=== PATIENT | male | born 1965 | race Caucasian/White ===

== ENCOUNTER → 2018-01-04 | Day surgery (SDC) | payer BC ==
[2018-01-01 10:07] LABS: BASOPHILS # (AUTO) 0.2 (0.0-0.1); BASOPHILS % 1.8 % (0.0-1.0); EOSINOPHILS # (AUTO) 0.3 (0.0-0.4); EOSINOPHILS % 3.3 % (0.0-6.0); HEMATOCRIT 47.8 % (38.2-49.6); HEMOGLOBIN 16.4 g/dL (14.0-18.0); LYMPHOCYTES # (AUTO) 3.2 (1.0-3.2); LYMPHOCYTES % 35.2 % (18.0-39.1); MEAN CORPUSCULAR HEMOGLOBIN 30.1 pg (28-32); MEAN CORPUSCULAR HGB CONC 34.3 g/dL (31-35); MEAN CORPUSCULAR VOLUME 87.9 fL (81-99); MONOCYTES # (AUTO) 1.2 (0.2-0.8); MONOCYTES % 12.9 % (4.4-11.3); NEUTROPHILS # (AUTO) 4.2 (2.1-6.9); NEUTROPHILS % 46.4 % (38.7-80.0); PLATELET COUNT 523 x10e3/uL (140-360); RED BLOOD COUNT 5.44 x10e6/uL (4.3-5.7); RED CELL DISTRIBUTION WIDTH 13.1 % (11.7-14.4)
[2018-01-01 10:27] LABS: ANION GAP 11.6 mmol/L (8-16); BLOOD UREA NITROGEN 13 mg/dL (7-26); BUN/CREATININE RATIO 13 (6-25); CARBON DIOXIDE 25 mmol/L (22-29); CHLORIDE 106 mmol/L (98-107); EST GLOMERULAR FILTRATION RATE > 60 ML/MIN (60-); GLUCOSE 99 mg/dL (74-118); POTASSIUM 4.6 mmol/L (3.5-5.1); SODIUM 138 mmol/L (136-145)
[~2018-01-04] MED LIST: AMLODIPINE BESYL5 MG PO; BUPIVACAINE 0.25% 30ML SDV INJ ONE; DEXAMETHASONE SOD PHOS INJ 4 MG/ML VIAL ONE; FENTANYL CITRATE/PF 100MCG/2 ML INJ ONE; KETOROLAC TROMETHAMINE 30 MG/ML VIAL ONE; LIDOCAINE HCL 1% LOCAL INJ 20 ML VIAL ONE; LIDOCAINE HCL 2% LOCAL INJ 5 ML SDV VIAL INJ ONE; MIDAZOLAM HCL 2 MG/2 ML VIAL ONE; NAPROXEN250 MG PO; ONDANSETRON HCL INJ 2 MG/ML VIAL ONE; PROPOFOL IV EMULSION 10 MG/ML 20 ML VIAL ONE; SEVOFLURANE INHAL SOLN 250 ML PEN BTL ONE; Z.0.LOSARTAN POTASS5 PO
--- OUTSIDE RECORDS SUMMARY | 2018-01-04 08:03 | XMS REPORT ---
Author Author [facility] Address Unknown Phone Unavailable Care Team Providers Care Emanations Analysis Technician Name Role Phone CRISTIAN HOUSTON Unavailable Unavailable Problems This patient has no known problems. Allergies, Adverse Reactions, Alerts This patient has no known allergies or adverse reactions. Medications This patient has no known medications. Results Test Description Test Time Test Comments Text Results Atomic Results Result Comments MRI SPINE LUMBAR WO [place] [address] Patient Name: ROMARIO ANDINO MR #: [id number] : 1965 Age/Sex: 52/M Req # : [id number] Adm Physician: Ordered by: CRISTIAN HOUSTON MD Report #: [id number] Location: MRI Room/Bed: Procedure: [id number] MRI/MRI SPINE LUMBAR WO Exam Date: 09/18/17 Exam Time: 1000 REPORT STATUS: Signed Exam: Lumbar spine MRI without IV contrast History: Back and left leg pain. Comparison studies: None Technique: Sagittal and axial T2 , sagittal T1 and IR, axial spin density oblique. Intravenous contrast: None Findings: Number of lumbar vertebral bodies: 5. Alignment: Normal lordosis. No scoliosis. Soft tissues: No T2 hyperintense inflammatory changes. Paraspinal muscles: No signal abnormalities. Well-preserved. No atrophic changes Lower thoracic cord: Normal in signal and morphology. The tip of the conus is at T12 -L1. Cauda equina: No masses. No arachnoiditis. Vertebrae: Incidental T1 hyperintense L2 vertebral body hemangioma. No compression fractures, infection or other neoplasm. Degenerative changes: L1-L2: Disc bulge asymmetric to the left with small foraminal disc protrusion and annular fissure result in mild left foraminal stenosis. Disc protrusion abuts the left L1 nerve root. Patent canal and right foramen. L2-L3: Disc bulge asymmetric to the left results in mild left foraminal stenosis. Patent canal and right foramen. L3-L4: Disc bulge asymmetric to the left with 16 mm TV x 3 mm AP left foraminal disc protrusion results in moderate left foraminal stenosis and exerts mass effect on the left L3 nerve root. Patent canal and right foramen. L4-L5: Disc bulge slightly asymmetric to the right with right with annular fissure result in mild right foraminal stenosis. A symmetric disc bulge abuts the right L4 nerve root in the anterior right extra foraminal zone. Patent canal and left foramen. L5-S1 : Mild loss of disc height. Disc bulge with a 8mm TV x 4 mm AP right subarticular disc protrusion compresses the right S1 nerve root. IMPRESSION: 1. Moderate left L3-L4 foraminal stenosis due to a disc protrusion which exerts mass effect on the left L3 nerve root. 2. Asymmetric left disc bulge with annular fissure at L1-L2 result in mild left foraminal stenosis. Disc protrusion abuts the left L1 nerve root. 3. Mild right L4-L5 foraminal stenosis due to a disc bulge with annular fissure which abuts the right L4 nerve root. 4. Right L5-S1 subarticular disc protrusion exerts mass effect on the right S1 nerve root. 5. No significant lumbar canal stenosis. Signed by: Dr. Cristian Mcelroy M.D. on 09/18/2017 5:38 PM Dictated By: CRISTIAN MCELROY MD 37 Transcribed By: DIOGO on 09/18/171737 COPY TO: CRISTIAN HOUSTON MD
--- NOTE | 2018-01-04 16:11 | Operative Report ---
DATE OF PROCEDURE: January 04, 2018 PREOPERATIVE DIAGNOSIS: Left inguinal hernia. POSTOPERATIVE DIAGNOSIS: Left inguinal hernia. OPERATION PERFORMED: Repair of left inguinal hernia with extended Prolene hernia system. ANESTHESIA: General. COMPLICATIONS: None. ESTIMATED BLOOD LOSS: Minimal. DESCRIPTION OF PROCEDURE: With the patient lying in bed in supine position under good general anesthesia. the abdomen was prepped with Betadine solution and draped in the usual manner. A left inguinal incision was made which was carried down through the subcutaneous tissue down to the external oblique aponeurosis. External oblique was opened along the length of its fibers and external inguinal ring was opened. The cord was then mobilized and retracted. Contained within the cord was an indirect hernia sac which was from the cord structures and a high ligation was achieved with a suture ligature of 2-0 silk and a 2-0 silk tie and the excess was resected. Examination of the direct space also revealed the presence of a direct inguinal hernia. The preperitoneal space was then entered right through the internal ring and a pocket was created without any difficulty. An extended Prolene hernia system was placed in the preperitoneal space and the underlay patch was deployed without any problems. The overlay patch was then placed over the floor and split inferolaterally to allow for passage of the cord. The mesh was then sutured to the conjoined tendon and inguinal ligament using interrupted sutures of 2-0 Vicryl. All the areas were infiltrated on the way out with solution of 0.25% percent Marcaine and 1% lidocaine mixed in equal parts. The external oblique aponeurosis was closed with a running suture of 2-0 Vicryl. The subcutaneous tissue was approximated with 3-0 plain and the skin was closed with clips. A dressing was applied. The sponge, lap, and needle count was correct. The patient tolerated the procedure well and returned to the recovery room in stable condition. Job#: [id number] SAK
== END | disposition home or self-care (01) ==
LOC: OR 08:01
PROVIDERS: ATTEND Surgery
DX: K40.90 Unilateral inguinal hernia, without obstruction or gangrene, not specified as recurrent (principal); I10 Essential (primary) hypertension; Z01.810 Encounter for preprocedural cardiovascular examination; Z01.812 Encounter for preprocedural laboratory examination
CPT/HCPCS: 36415; 49505; 80048; 85025; 93005; C1781; J1100; J1885; J2001 ×2; J2250; J2405

== ENCOUNTER 2018-01-24 10:15 | Observation (INO) | payer BC ==
[2018-01-22 15:40] LABS: BASOPHILS # (AUTO) 0.2 (0.0-0.1); BASOPHILS % 1.6 % (0.0-1.0); EOSINOPHILS # (AUTO) 0.4 (0.0-0.4); EOSINOPHILS % 2.6 % (0.0-6.0); HEMATOCRIT 50.7 % (38.2-49.6); HEMOGLOBIN 17.4 g/dL (14.0-18.0); LYMPHOCYTES # (AUTO) 4.2 (1.0-3.2); LYMPHOCYTES % 31.7 % (18.0-39.1); MEAN CORPUSCULAR HEMOGLOBIN 29.8 pg (28-32); MEAN CORPUSCULAR HGB CONC 34.3 g/dL (31-35); MEAN CORPUSCULAR VOLUME 86.8 fL (81-99); MONOCYTES # (AUTO) 1.3 (0.2-0.8); MONOCYTES % 9.7 % (4.4-11.3); NEUTROPHILS # (AUTO) 7.2 (2.1-6.9); PLATELET COUNT 531 x10e3/uL (140-360); RED BLOOD COUNT 5.84 x10e6/uL (4.3-5.7); RED CELL DISTRIBUTION WIDTH 12.9 % (11.7-14.4)
[2018-01-22 15:53] LABS: INR 1.07; PARTIAL THROMBOPLASTIN TIME 27.8 seconds (23.8-35.5); PROTHROMBIN TIME 13.1 seconds (11.9-14.5)
[2018-01-22 15:58] LABS: BLOOD UREA NITROGEN 12 mg/dL (7-26); BUN/CREATININE RATIO 13 (6-25); CALCIUM 9.2 mg/dL (8.4-10.2); CARBON DIOXIDE 21 mmol/L (22-29); CHLORIDE 106 mmol/L (98-107); CREATININE, SERUM 0.94 mg/dL (0.72-1.25); EST GLOMERULAR FILTRATION RATE > 60 ML/MIN (60-); GLUCOSE 93 mg/dL (74-118); SODIUM 138 mmol/L (136-145)
--- NOTE | 2018-01-22 17:16 | Diagnostic Imaging Report ---
PROCEDURE: Frontal and lateral views of the chest. COMPARISON: Patients [facility], , CHEST SINGLE (PORTABLE), 06/19/2012, 11:15. INDICATIONS: PRE-OPERATIVE CHEST X-RAY FOR LUMBAR SPINE SURGERY FINDINGS: Lines/tubes: None. Lungs: The lungs are well inflated and clear. There is no evidence of pneumonia or pulmonary edema. Pleura: There is no pleural effusion or pneumothorax. Heart and mediastinum: The heart and the mediastinum are normal. Bones: No acute bony abnormality. IMPRESSION: 1. No acute cardiopulmonary abnormalities. Merrill Hughes M.D. Dictated by: Merrill Hughes M.D. on 01/22/2018 at 17:15 Electronically approved by: Merrill Hughes M.D. on 01/22/2018 at 17:15
[~2018-01-24] VITALS: Ht 185.4 cm; Wt 93.0 kg
[~2018-01-24 10:15] MED LIST changes: +ACETAMINOPHEN 1000 MG/100 ML 100 ML IV ONE; +BACITRACIN 50,000 UNIT VIAL ONE; -BUPIVACAINE 0.25% 30ML SDV INJ ONE; +BUPIVACAINE 0.5%/EPI 30 ML SDV INJ ONE; +CEFAZOLIN SOD 1 GM VIAL ONE; -DEXAMETHASONE SOD PHOS INJ 4 MG/ML VIAL ONE; -FENTANYL CITRATE/PF 100MCG/2 ML INJ ONE; +GELATIN SPONGE SZ 100 ONE; -KETOROLAC TROMETHAMINE 30 MG/ML VIAL ONE; +LIDOCAINE HCL (LTA) 4 ML SOLN ONE; -LIDOCAINE HCL 1% LOCAL INJ 20 ML VIAL ONE; -LIDOCAINE HCL 2% LOCAL INJ 5 ML SDV VIAL INJ ONE; -MIDAZOLAM HCL 2 MG/2 ML VIAL ONE; -ONDANSETRON HCL INJ 2 MG/ML VIAL ONE; -PROPOFOL IV EMULSION 10 MG/ML 20 ML VIAL ONE; -SEVOFLURANE INHAL SOLN 250 ML PEN BTL ONE; +THROMBIN FOR SOLN 5,000 UNIT VIAL ONE
[2018-01-24] MEDS ORDERED: LACTATED RINGER'S 1,000 ML IV SCH (13:42)
[2018-01-24] MEDS ORDERED: NAPROXEN 250 MG TAB PO SCH (13:45)
[2018-01-24] MEDS ORDERED: PROMETHAZINE HCL (IM) 25 MG/ML VIAL IM PRN (13:45)
[2018-01-24] MEDS ORDERED: OXYCODONE/ACETAMINOPHEN 5-325 1 EACH TABLET PO PRN (13:45)
[2018-01-24] MEDS ORDERED: MORPHINE SULFATE 5 MG/ML VIAL IM PRN (13:45)
[2018-01-24] MEDS ORDERED: CARISOPRODOL 350 MG TAB PO PRN (13:45)
[2018-01-24] MEDS ORDERED: MAGNESIUM/ALUMINUM/SIMETHICONE 30 ML UDC PO PRN (13:45)
[2018-01-24] MEDS ORDERED: ACETAMINOPHEN 325 MG TAB PO PRN (13:45)
[2018-01-24] MEDS ORDERED: HYDROMORPHONE 2MG/ML INJ IV PRN (13:45)
[2018-01-24] MEDS ORDERED: CEFAZOLIN SOD 1 GM/NS 50ML 50 ML IV SCH (14:00)
[2018-01-24] MEDS ORDERED: FENTANYL CITRATE/PF 100MCG/2 ML INJ ONE ×2 (14:07→18:56)
[2018-01-24] MEDS ORDERED: ONDANSETRON HCL INJ 2 MG/ML VIAL ONE ×2 (15:00→19:22)
[2018-01-24] MEDS ORDERED: METOCLOPRAMIDE HCL 10 MG/2ML VIAL ONE (15:00)
--- NOTE | 2018-01-24 15:10 | Operative Report ---
DATE OF PROCEDURE: January 24, 2018 PREOPERATIVE DIAGNOSIS: Left L3-4 disk herniation with radiculopathy, M51.16. POSTOPERATIVE DIAGNOSIS: Left L3-4 disk herniation with radiculopathy, M51.16. PROCEDURES: Left L3-4 laminotomy, medial facetectomy, and microsurgical diskectomy, [address]. ANESTHESIA: General. INDICATIONS: The patient is a 52-year-old man who presents with left L3-4 subarticular disk herniation symptomatic with an intractable left L4 radiculopathy. He was taken to the operating room for microsurgical diskectomy. PROCEDURE: After the induction of general anesthesia, the patient was placed on the operating table in prone position over a Romie frame. The lumbar region was prepped and draped in sterile fashion. A preoperative x-ray was obtained. A small midline incision was created. The lumbar fascia was opened to the left of midline, and a subperiosteal dissection was carried out to expose the left side of the L3 and L4 laminae and the medial aspect of the hypertrophic facet joint. A 2nd x-ray confirmed correct localization. The operating microscope was brought in. A high-speed drill equipped with a domonique bur was used to drill the inferior aspect of the lamina of L3 and the superior aspect of the lamina of L4 and the medial rim of the L3-L4 hypertrophic facet joint on the left side. The ligamentum flavum was resected, and the dural sac and the L4 nerve root were exposed. The nerve root was slightly retracted medially, and the epidural veins lateral to it were bipolar coagulated and divided with microscissors. The disk herniation immediately came into view. The membrane overlying the disk was incised with a number 11 blade, and the disk was retrieved and removed with a ball probe and a micropituitary rongeur. The opening into the posterior longitudinal ligament and posterior annulus of the disk was enlarged with a number 11 blade, and the loose contents of the L3-4 disk were evacuated with curettes and pituitary rongeurs. Meticulous hemostasis was secured. The retractor was removed. The lumbar fascia was closed with 0 Vicryl sutures. Subcutaneous layer was closed with 2-0 Vicryl sutures. The skin was closed with 3-0 Monocryl sutures in subcuticular fashion. Steri-Strips and a dressing were applied. The patient was awakened, extubated and taken to the postanesthesia care unit in stable condition. No intraoperative complications were encountered. Estimated blood loss was 10 mL. Job#: [id number] EV
[2018-01-24 16:17] VITALS: BP 122/70
[2018-01-24 16:34] VITALS: BP 122/70
[2018-01-24] MEDS ORDERED: NAPROXEN 250 MG TAB PO PRN (17:45)
[2018-01-24] MEDS ORDERED: MIDAZOLAM HCL 2 MG/2 ML VIAL ONE (18:56)
[2018-01-24] MEDS ORDERED: LIDOCAINE HCL 2% LOCAL INJ 5 ML SDV VIAL INJ ONE (19:22)
[2018-01-24] MEDS ORDERED: ACETAMINOPHEN 1000 MG/100 ML IV ONE (19:22)
[2018-01-24] MEDS ORDERED: DEXAMETHASONE SOD PHOS INJ 4 MG/ML VIAL ONE (19:22)
[2018-01-24] MEDS ORDERED: PROPOFOL IV EMULSION 10 MG/ML 20 ML VIAL ONE (19:22)
[2018-01-24] MEDS ORDERED: ROCURONIUM BROMIDE 10 MG/ML 5ML VIAL ONE (19:22)
[2018-01-24] MEDS ORDERED: SEVOFLURANE INHAL SOLN 250 ML PEN BTL ONE (19:22)
[2018-01-24 20:00] VITALS: BP 131/77
[2018-01-24 20:05] VITALS: BP 131/77
[2018-01-24] MEDS: ONDANSETRON HCL INJ 2 MG/ML VIAL IV PRN (20:10)
[2018-01-24] MEDS: CEFAZOLIN SOD 1 GM VIAL IV SCH (20:10)
[2018-01-24] MEDS ORDERED: ZOLPIDEM TARTRATE 5 MG TAB PO PRN (21:00)
[2018-01-25] VITALS: BP 93/55
[2018-01-25] MEDS: CEFAZOLIN SOD 1 GM VIAL IV SCH ×2 (03:42→11:00)
[2018-01-25 04:00] VITALS: BP 106/51
[2018-01-25 07:35] VITALS: BP 106/51
[2018-01-25 07:57] VITALS: BP 120/69
[2018-01-25] MEDS ORDERED: NON-FORMULARY MEDICATION (Losartan Potassium 50 MG) PO SCH (09:00)
[2018-01-25] MEDS ORDERED: LOSARTAN POTASSIUM 25 MG TAB PO SCH (09:00)
[2018-01-25] MEDS ORDERED: AMLODIPINE BESYLATE 5 MG TAB PO SCH (09:00)
[2018-01-25] MEDS: ONDANSETRON HCL INJ 2 MG/ML VIAL IV PRN (11:00)
[2018-01-25 11:24] VITALS: BP 127/73
== END 2018-01-25 11:35 | disposition home or self-care (01) ==
LOC: OR 10:15 → MED/SURG 14:40
PROVIDERS: ADMIT Neurological Surgery; ATTEND Neurological Surgery
DX: M51.16 Intervertebral disc disorders with radiculopathy, lumbar region (principal); Z88.5 Allergy status to narcotic agent; I10 Essential (primary) hypertension; D58.0 Hereditary spherocytosis
CPT/HCPCS: 36415; 71046; 72020; 80048; 85025; 85610; 85730; 86850; 86900; 88304; 88311; 93005; G0378; J0690; J1100; J2001; J2250; J2270; J2405; J2765

== ENCOUNTER 2018-02-14 07:00 | Outpatient (RCR) | payer BC ==
[~2018-02-14 07:00] MED LIST changes: -ACETAMINOPHEN 1000 MG/100 ML 100 ML IV ONE; -BACITRACIN 50,000 UNIT VIAL ONE; -BUPIVACAINE 0.5%/EPI 30 ML SDV INJ ONE; -CEFAZOLIN SOD 1 GM VIAL ONE; -GELATIN SPONGE SZ 100 ONE; -LIDOCAINE HCL (LTA) 4 ML SOLN ONE; -THROMBIN FOR SOLN 5,000 UNIT VIAL ONE
== END 2018-02-16 ==
LOC: PT 07:00
PROVIDERS: ATTEND Neurological Surgery
DX: M51.16 Intervertebral disc disorders with radiculopathy, lumbar region (principal); M53.86 Other specified dorsopathies, lumbar region; M54.5 Low back pain; M62.81 Muscle weakness (generalized)

== ENCOUNTER 2018-03-12 14:58 | Outpatient (RCR) | payer BC | END 2018-03-18 | LOC: PT 14:58 | PROVIDERS: ATTEND Neurological Surgery | DX: M51.16 Intervertebral disc disorders with radiculopathy, lumbar region (principal); M54.5 Low back pain; M53.86 Other specified dorsopathies, lumbar region; M62.81 Muscle weakness (generalized) | CPT/HCPCS: 97139 ==

== ENCOUNTER 2019-03-13 09:20 | Observation (INO) | payer BC ==
[2019-03-11 14:56] LABS: BASOPHILS # (AUTO) 0.2 (0.0-0.1); BASOPHILS % 1.7 % (0.0-1.0); EOSINOPHILS # (AUTO) 0.6 (0.0-0.4); EOSINOPHILS % 5.3 % (0.0-6.0); HEMATOCRIT 46.4 % (38.2-49.6); HEMOGLOBIN 16.1 g/dL (14.0-18.0); LYMPHOCYTES # (AUTO) 4.3 (1.0-3.2); LYMPHOCYTES % 40.5 % (18.0-39.1); MEAN CORPUSCULAR HEMOGLOBIN 30.1 pg (28-32); MEAN CORPUSCULAR HGB CONC 34.7 g/dL (31-35); MEAN CORPUSCULAR VOLUME 86.7 fL (81-99); MONOCYTES # (AUTO) 1.2 (0.2-0.8); MONOCYTES % 11.5 % (4.4-11.3); NEUTROPHILS # (AUTO) 4.3 (2.1-6.9); NEUTROPHILS % 40.8 % (38.7-80.0); PLATELET COUNT 506 x10e3/uL (140-360); RED BLOOD COUNT 5.35 x10e6/uL (4.3-5.7); RED CELL DISTRIBUTION WIDTH 12.8 % (11.7-14.4)
[2019-03-11 15:08] LABS: INR 0.94; PROTHROMBIN TIME 13.1 seconds (11.9-14.5)
[2019-03-11 15:12] LABS: ANION GAP 9.9 mmol/L (8-16); BLOOD UREA NITROGEN 14 mg/dL (7-26); BUN/CREATININE RATIO 12 (6-25); CALCIUM 9.3 mg/dL (8.4-10.2); CARBON DIOXIDE 26 mmol/L (22-29); CHLORIDE 104 mmol/L (98-107); CREATININE, SERUM 1.18 mg/dL (0.72-1.25); EST GLOMERULAR FILTRATION RATE > 60 ML/MIN (60-); GLUCOSE 83 mg/dL (74-118); POTASSIUM 3.9 mmol/L (3.5-5.1); SODIUM 136 mmol/L (136-145)
--- NOTE | 2019-03-11 15:13 | Diagnostic Imaging Report ---
EXAMINATION: PA and lateral views of the chest. COMPARISON: None CLINICAL HISTORY: Preadmission, cervical surgery DISCUSSION: Lines/tubes: None. Lungs: The lungs are well inflated and clear. No pneumonia or pulmonary edema. Pleura: No pleural effusion or pneumothorax. Heart and mediastinum: The cardiomediastinal silhouette is normal. Bones and soft tissues: No acute bony abnormalities. IMPRESSION: No acute cardiopulmonary abnormalities. Signed by: Dr. Joseph Argueta M.D. on 03/11/2019 3:10 PM
[~2019-03-13] VITALS: Ht 185.4 cm; Wt 95.3 kg
[~2019-03-13 09:20] MED LIST changes: +ACETAMINOPHEN 1000 MG/100 ML 100 ML IV ONE; +CYCLOBENZAPRINE10 MG PO; +IBUPROFEN 250 ML IV ONE; +LIDOCAINE HCL (LTA) 4 ML SOLN ONE
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
[2019-03-13] MEDS ORDERED: THROMBIN FOR SOLN 5,000 UNIT VIAL ONE (09:31)
[2019-03-13] MEDS ORDERED: BUPIVACAINE 0.5%/EPI 30 ML SDV INJ ONE (09:31)
[2019-03-13] MEDS ORDERED: BACITRACIN 50,000 UNIT VIAL ONE (09:31)
[2019-03-13] MEDS ORDERED: GELATIN SPONGE 12-7MM ONE (09:31)
[2019-03-13] MEDS ORDERED: CEFAZOLIN SOD 2 GM/D5W 50ML 50 ML IV ONE (09:50)
[2019-03-13 10:17] LABS: BASOPHILS # (AUTO) 0.2 (0.0-0.1); BASOPHILS % 2.3 % (0.0-1.0); EOSINOPHILS # (AUTO) 0.6 (0.0-0.4); EOSINOPHILS % 7.2 % (0.0-6.0); HEMATOCRIT 48.5 % (38.2-49.6); HEMOGLOBIN 16.7 g/dL (14.0-18.0); LYMPHOCYTES # (AUTO) 3.5 (1.0-3.2); MEAN CORPUSCULAR HEMOGLOBIN 29.9 pg (28-32); MEAN CORPUSCULAR HGB CONC 34.4 g/dL (31-35); MEAN CORPUSCULAR VOLUME 86.9 fL (81-99); MONOCYTES # (AUTO) 0.9 (0.2-0.8); MONOCYTES % 9.9 % (4.4-11.3); NEUTROPHILS # (AUTO) 3.5 (2.1-6.9); NEUTROPHILS % 40.3 % (38.7-80.0); PLATELET COUNT 527 x10e3/uL (140-360); RED BLOOD COUNT 5.58 x10e6/uL (4.3-5.7); RED CELL DISTRIBUTION WIDTH 12.8 % (11.7-14.4)
[2019-03-13] MEDS ORDERED: SCOPOLAMINE 1.5 MG PATCH ONE (10:42)
[2019-03-13] MEDS ORDERED: SEVOFLURANE INHAL SOLN 250 ML PEN BTL ONE (13:47)
[2019-03-13] MEDS ORDERED: ROCURONIUM BROMIDE 10 MG/ML 5ML VIAL ONE (13:47)
[2019-03-13] MEDS ORDERED: NEOSTIGMINE 5 MG/5ML SYR ONE (13:47)
[2019-03-13] MEDS ORDERED: DEXAMETHASONE SOD PHOS INJ 4 MG/ML VIAL ONE (13:47)
[2019-03-13] MEDS ORDERED: ONDANSETRON HCL INJ 2MG/ML 2ML 2 MG/ML VIAL ONE (13:47)
[2019-03-13] MEDS ORDERED: LIDOCAINE HCL 2% JELLY 5 ML TUBE ONE (13:47)
[2019-03-13] MEDS ORDERED: LIDOCAINE HCL 2% LOCAL INJ 5 ML SDV VIAL INJ ONE (13:47)
[2019-03-13] MEDS ORDERED: PROPOFOL IV EMULSION 10 MG/ML 20 ML VIAL ONE (13:47)
[2019-03-13] MEDS ORDERED: GLYCOPYRROLATE INJ 1MG/ 5 ML SYR ONE (13:47)
[2019-03-13] MEDS ORDERED: ONDANSETRON HCL INJ 2MG/ML 2ML 2 MG/ML VIAL IV PRN (14:15)
[2019-03-13] MEDS ORDERED: NAPROXEN 250 MG TAB PO PRN (14:15)
[2019-03-13] MEDS ORDERED: MORPHINE SULFATE 5 MG/ML VIAL IM PRN (14:15)
[2019-03-13] MEDS ORDERED: ACETAMINOPHEN 325 MG TAB PO PRN (14:15)
[2019-03-13] MEDS ORDERED: PROMETHAZINE HCL (IM) 25 MG/ML VIAL IM PRN (14:15)
[2019-03-13] MEDS ORDERED: CEPACOL SORE THROAT LOZENGES PO PRN (14:15)
[2019-03-13] MEDS ORDERED: ZOLPIDEM TARTRATE 5 MG TAB PO PRN (14:15)
[2019-03-13] MEDS ORDERED: MAGNESIUM/ALUMINUM/SIMETHICONE 30 ML UDC PO PRN (14:15)
[2019-03-13] MEDS ORDERED: FENTANYL CITRATE/PF 100MCG/2 ML INJ ONE ×2 (14:54→19:22)
[2019-03-13] MEDS: CYCLOBENZAPRINE HCL 10 MG TAB PO SCH ×2 (15:00→21:45)
[2019-03-13 15:13] VITALS: BP 126/81
--- NOTE | 2019-03-13 15:13 | NUR ---
Patient arrived to unit from PACU, fully awake and alertx3. Anterior cervical surgical dressing intact with soft collar in place. He was able to ambulate to bathroom with standby assistance. POC discussed. Initial assessment done. Patient instructed to call for assistance as needed and verbalized understanding. Call oliveira within reach.
[2019-03-13] MEDS ORDERED: MORPHINE SULFATE INJ 4 MG/ML INJ 1ML IM PRN (15:45)
[2019-03-13 16:36] VITALS: BP 126/81
[2019-03-13] MEDS: LACTATED RINGER'S 1,000 ML IV SCH ×2 (16:49→22:30)
[2019-03-13 19:08] LABS: EOSINOPHILS % (MANUAL) 4 % (0-7); LYMPHOCYTES % (MANUAL) 18 % (19-48); MONOCYTES % (MANUAL) 8 % (3.4-9.0); NEUTROPHILS % (MANUAL) 34 % (40-74); PLATELET ESTIMATE MODERATELY INCREASED; PLATELET MORPHOLOGY COMMENT NORMAL; RBC MORPHOLOGY COMMENT NORMAL
[2019-03-13] MEDS: CARISOPRODOL 350 MG TAB PO PRN (19:13)
[2019-03-13] MEDS: OXYCODONE/ACETAMINOPHEN 5-325 1 EACH TABLET PO PRN (19:13)
[2019-03-13] MEDS ORDERED: MIDAZOLAM HCL 2 MG/2 ML VIAL ONE (19:22)
[2019-03-13 20:00] VITALS: BP 118/66
--- NOTE | 2019-03-13 20:39 | Operative Report ---
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 PROCEDURES: 1. C6-7 anterior cervical diskectomy and microsurgical osteophyte resection and allograft fusion, 80779. 2. Preparation of MTF corticocancellous allograft, 67786. 3. C6-7 anterior cervical plating with Synthes ZPN plate, 49191. ANESTHESIA: General. INDICATIONS: The patient is a 53-year-old man, who presents with a large disk osteophyte complex at C5-6 producing severe central and bilateral foraminal stenosis. He was in the operating for anterior cervical decompression and fusion. DESCRIPTION OF PROCEDURE: After induction of general anesthesia, the patient was placed on the operating table in supine position. The right side of neck was prepped and draped in sterile fashion. The fluoroscopic C-arm was positioned in cross-table lateral orientation. A transverse incision was created on the right side of neck superimposed on the C6-7 disk space as determined by fluoroscopy. The platysma was divided in line with the incision. A subplatysmal dissection was carried out and avascular plane of dissection was developed medially to sternocleidomastoid muscles and was followed medial to the carotid sheath to the anterior border of cervical spine. The deep cervical fascia was opened. The esophagus was retracted to the left. The attachments of longus colli muscles to the anterolateral aspects of the bodies of C6 and C7 were divided. The anterior longitudinal ligament was resected. [place] posts were inserted in C6 and C7. The [place] distractor was used to distract disk space. The anterior annulus of this was incised with a #11 blade. The contents of the C6-7 disk were thoroughly evacuated with angled curettes and pituitary rongeurs. The posterior osteophytes were meticulously drilled with a 2 mm cutting bur on a high-speed drill until they were completely removed. The posterior annulus of the disk, herniated disk material, and the posterior longitudinal ligament were resected layer by layer until the dura was fully exposed and decompressed. The medial aspects of the uncinate processes were resected bilaterally to further expose any compressed origins of both C7 nerve roots. After satisfactory decompression had been achieved, the endplates were prepared for fusion. The disk space was sized and found to be 8 mm in height. A piece of MTF corticocancellous allograft measuring 8 mm in thickness was selected and loaded onto a corresponding Synthes ZPN plate. The construct was inserted into the C6-7 disk space under distraction and tamped in place until the anterior margin of the plate was flushed with anterior margin of the vertebral bodies. The plate was then screwed to the endplates of C6 and C7 with two pairs of 16 mm screws, all screws were locked and excellent construct was obtained. The wound was copiously irrigated with bacitracin solution. Meticulous hemostasis was secured. The retractor was removed. The platysma was closed with 3-0 Vicryl sutures. The skin was closed with 4-0 Monocryl sutures in subcuticular fashion. Steri-Strips and dressing were applied. The patient was awakened, extubated and taken to postanesthesia care unit in stable condition. No intraoperative complicationswere encountered. ESTIMATED BLOOD LOSS: 10 mL. Jaren Menard MD PP/YANELIS /[id number]
[2019-03-13] MEDS: CEFAZOLIN SOD 1 GM/NS 50ML 50 ML IV SCH (21:45)
[2019-03-14] VITALS: BP 96/53
[2019-03-14 04:00] VITALS: BP 128/65
[2019-03-14 04:13] VITALS: BP 128/65
[2019-03-14] MEDS: CEFAZOLIN SOD 1 GM/NS 50ML 50 ML IV SCH (06:27)
[2019-03-14] MEDS: CARISOPRODOL 350 MG TAB PO PRN (06:27)
[2019-03-14] MEDS: OXYCODONE/ACETAMINOPHEN 5-325 1 EACH TABLET PO PRN ×2 (06:27→07:15)
--- NOTE | 2019-03-14 07:33 | Diagnostic Imaging Report ---
Exam: 2 views of the cervical spine dated 03/14/2019 at 6:41 AM History: Postoperative Comparison: None available Findings: There is an anterior spacer at C6-C7. Degenerative spurring of C4 and C5 is present. Mild prevertebral soft tissue swelling. Impression: Postoperative changes. Signed by: Dr. Sunday Jerome DO on 03/14/2019 7:30 AM
[2019-03-14 07:40] VITALS: BP 128/65
[2019-03-14 07:54] VITALS: BP 124/74
[2019-03-14] MEDS: CYCLOBENZAPRINE HCL 10 MG TAB PO SCH (08:46)
[2019-03-14] MEDS ORDERED: LOSARTAN POTASSIUM 100 MG TAB PO SCH (09:00)
[2019-03-14] MEDS ORDERED: NON-FORMULARY MEDICATION (Losartan Potassium 50 MG) PO SCH (09:00)
[2019-03-14] MEDS ORDERED: AMLODIPINE BESYLATE 5 MG TAB PO SCH (09:00)
--- NOTE | 2019-03-14 10:20 | NUR ---
patient discharged home, prescription and discharge instruction given, patient verbalized understanding, dressing changed and no redness, swelling or drainage from incision site anterior neck. IV canula removed with tip intact ,no ss of infiltration, at bed side giving him ride, not in any distress, transported via to [facility]
[2019-03-14] MEDS ORDERED: NORCO 7.5-3251 EACH PO (10:38)
--- NOTE | 2019-03-14 15:01 | NUR ---
SOCIAL WORK INITIAL ASSESSMENT [employer] to bedside to discuss plan of care with patient/family. CM/SW role and care transitions discussed. Anticipated discharge plan discussed along with duration of care. CM/SW discussed patients right to make decisions in care. CM/SW work hours given. 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 Name and number was also written on the patients whiteboard. Patient verbalized understanding of discussion. CM will follow-up with ongoing discharge and transition of care needs.
== END 2019-03-14 11:15 | disposition home or self-care (01) ==
LOC: OR 09:20 → PACU V 14:13 → IMCU 15:13
PROVIDERS: ADMIT Neurological Surgery; ATTEND Neurological Surgery
DX: M50.123 Cervical disc disorder at C6-C7 level with radiculopathy (principal); Z01.810 Encounter for preprocedural cardiovascular examination; Z01.812 Encounter for preprocedural laboratory examination; Z01.811 Encounter for preprocedural respiratory examination; Z88.5 Allergy status to narcotic agent; I10 Essential (primary) hypertension; D58.0 Hereditary spherocytosis; Z90.81 Acquired absence of spleen
CPT/HCPCS: 20931; 22551; 22845; 36415 ×2; 71046; 72040; 80048; 85025 ×2; 85610; 85730; 86850; 86900; 88304; 93005; C1713 ×2; C9359; G0378 ×2; J0131; J0690 ×2; J1100; J2001 ×2; J2250; J2405; J2704; J3490; J7121; 77003

== ENCOUNTER → 2019-04-10 | Outpatient (CLI) | payer BC ==
[~2019-04-10] MED LIST changes: -ACETAMINOPHEN 1000 MG/100 ML 100 ML IV ONE; -IBUPROFEN 250 ML IV ONE; -LIDOCAINE HCL (LTA) 4 ML SOLN ONE; +NORCO 7.5-3251 EACH PO
--- NOTE | 2019-04-10 14:02 | Diagnostic Imaging Report ---
Exam: 4 views of the cervical spine dated 04/10/2019 History: Postoperative Comparison: 03/14/2019 Findings: There is an anterior spacer at C6-C7. Degenerative spurring of C4 and C5 is present. No evidence of subluxation with flexion and extension. Impression: No evidence of subluxation with flexion and extension in a postoperative neck with disc spacer at C6-C7. Signed by: Dr. Sunday Jerome DO on 04/10/2019 1:59 PM
== END ==
LOC: RAD 11:20
PROVIDERS: ATTEND Neurological Surgery
DX: M50.20 Other cervical disc displacement, unspecified cervical region (principal); Z98.1 Arthrodesis status
CPT/HCPCS: 72050

== ENCOUNTER 2020-03-01 08:24 | Emergency (ER) | payer BC ==
[~2020-03-01] VITALS: Ht 185.4 cm; Wt 95.3 kg
[2020-03-01] MEDS ORDERED: ONDANSETRON HCL 4 MG ORAL DISINTEGRATING TAB PO ONE (08:45)
[2020-03-01] MEDS ORDERED: ORPHENADRINE CITRATE 30 MG/ML VIAL IM ONE (08:45)
[2020-03-01] MEDS ORDERED: KETOROLAC TROMETHAMINE 60 MG/2 ML VIAL IM ONE (08:45)
[2020-03-01] MEDS ORDERED: ONDANSETRON HCL INJ 2MG/ML 2ML 2 MG/ML VIAL IV STA (09:16)
[2020-03-01] MEDS ORDERED: KETOROLAC TROMETHAMINE 30 MG/ML VIAL IV STA (09:16)
[2020-03-01 09:35] LABS: BASOPHILS # (AUTO) 0.1 (0.0-0.1); BASOPHILS % 1.1 % (0.0-1.0); EOSINOPHILS # (AUTO) 0.2 (0.0-0.4); HEMATOCRIT 49.1 % (38.2-49.6); HEMOGLOBIN 16.8 g/dL (14.0-18.0); LYMPHOCYTES # (AUTO) 3.5 (1.0-3.2); LYMPHOCYTES % 35.9 % (18.0-39.1); MEAN CORPUSCULAR HEMOGLOBIN 29.5 pg (28-32); MEAN CORPUSCULAR HGB CONC 34.2 g/dL (31-35); MEAN CORPUSCULAR VOLUME 86.3 fL (81-99); MONOCYTES # (AUTO) 0.9 (0.2-0.8); NEUTROPHILS # (AUTO) 5.1 (2.1-6.9); NEUTROPHILS % 51.8 % (38.7-80.0); PLATELET COUNT 556 x10e3/uL (140-360); RED BLOOD COUNT 5.69 x10e6/uL (4.3-5.7); RED CELL DISTRIBUTION WIDTH 12.8 % (11.7-14.4)
[2020-03-01 09:55] LABS: ALANINE AMINOTRANSFERASE 20 IU/L (0-55); ALBUMIN 4.1 g/dL (3.5-5.0); ALBUMIN/GLOBULIN RATIO 1.4 (0.8-2.0); ALKALINE PHOSPHATASE 59 IU/L (40-150); ANION GAP 12.3 mmol/L (8-16); BLOOD UREA NITROGEN 13 mg/dL (7-26); BUN/CREATININE RATIO 13 (6-25); CARBON DIOXIDE 29 mmol/L (22-29); CHLORIDE 102 mmol/L (98-107); CREATININE, SERUM 1.04 mg/dL (0.72-1.25); EST GLOMERULAR FILTRATION RATE > 60 ML/MIN (60-); GLUCOSE 100 mg/dL (74-118); POTASSIUM 4.3 mmol/L (3.5-5.1); SODIUM 139 mmol/L (136-145)
[2020-03-01 10:00] LABS: BILIRUBIN,URINE NEGATIVE (NEGATIVE); CLARITY,URINE CLEAR (CLEAR); COLOR,URINE YELLOW (YELLOW); KETONES,URINE NEGATIVE (NEGATIVE); LEUKOCYTE ESTERASE ,URINE NEGATIVE (NEGATIVE); NITRITE,URINE NEGATIVE (NEGATIVE); PROTEIN,URINE DIPSTICK NEGATIVE (NEGATIVE); URINE UROBILINOGEN 1 mg/dL (0.2 - 1)
[2020-03-01 10:04] LABS: MUCUS,URINE RARE (RARE); RBC,URINE 0-5 /HPF (0-5); WBC,URINE (MAN) 0-5 /HPF (0-5)
[2020-03-01] MEDS ORDERED: DIATRIZOATE MEGL/DIATRIZOA SOD 30 ML BTL PO ONE (10:11)
--- NOTE | 2020-03-01 10:59 | Diagnostic Imaging Report ---
EXAM: CT Abdomen and Pelvis WITH intravenous contrast INDICATION: Abdominal pain COMPARISON: None. TECHNIQUE: Abdomen and pelvis were scanned utilizing a multidetector helical scanner from the lung base to the pubic symphysis after administration of IV contrast. Coronal and sagittal reformations were obtained. Routine protocol was performed. Scan was performed during portal venous phase. IV CONTRAST: 100mL of Isovue 370 ORAL CONTRAST: Gastrografin RADIATION DOSE: Total DLP: 423 mGy*cm Dose modulation, iterative reconstruction, and/or weight based adjustment of the mA/kV was utilized to reduce the radiation dose to as low as reasonably achievable. FINDINGS: LOWER THORAX: Normal. HEPATOBILIARY: No focal hepatic lesions. No biliary ductal dilatation. The gallbladder appears unremarkable. SPLEEN: Splenectomy. PANCREAS: No focal masses or ductal dilatation. ADRENALS: No adrenal nodules. KIDNEYS/URETERS: No hydronephrosis, stones, or solid mass lesions. PELVIC ORGANS/BLADDER: Unremarkable. PERITONEUM / RETROPERITONEUM: No free air or fluid. LYMPH NODES: No lymphadenopathy. VESSELS: Unremarkable. GI TRACT: Mild diverticulosis without CT evidence of diverticulitis. No abnormal bowel thickening. No bowel obstruction. Normal appendix. BONES AND SOFT TISSUES: Unremarkable. IMPRESSION: Diverticulosis without CT evidence of diverticulitis. Otherwise, no acute findings in the abdomen or pelvis. Signed by: Urban Mayorga MD on 03/01/2020 10:56 AM
[2020-03-01] MEDS ORDERED: ROBAXIN-750750 MG PO (11:07)
[2020-03-01] MEDS ORDERED: NAPROXEN250 MG PO (11:07)
[2020-03-01 11:37] VITALS: BP 131/94
[2020-03-01] MEDS ORDERED: IOPAMIDOL 370 MG/ML 200 ML INFUS..BTL INJ ONE (13:05)
[2020-03-01] MEDS ORDERED: SODIUM CHLORIDE 0.9% 50ML 50 ML ONE (13:05)
== END 2020-03-01 11:59 | disposition home or self-care (01) ==
LOC: ER 08:24
DX: S33.5XXA Sprain of ligaments of lumbar spine, initial encounter (principal); R10.32 Left lower quadrant pain; M47.816 Spondylosis without myelopathy or radiculopathy, lumbar region; S39.92XA Unspecified injury of lower back, initial encounter; Y99.0 Civilian activity done for income or pay
CPT/HCPCS: 36415; 74177; 80053; 81001; 83690; 85025; 99284; J1885; J2405; Q9967

== ENCOUNTER 2020-04-22 05:35 | Observation (INO) | payer BC, OTHER ==
[2020-04-19 13:11] LABS: BASOPHILS # (AUTO) 0.1 (0.0-0.1); BASOPHILS % 1.5 % (0.0-1.0); EOSINOPHILS # (AUTO) 0.2 (0.0-0.4); EOSINOPHILS % 1.7 % (0.0-6.0); HEMATOCRIT 46.6 % (38.2-49.6); HEMOGLOBIN 15.8 g/dL (14.0-18.0); LYMPHOCYTES # (AUTO) 3.5 (1.0-3.2); LYMPHOCYTES % 37.7 % (18.0-39.1); MEAN CORPUSCULAR HEMOGLOBIN 29.4 pg (28-32); MEAN CORPUSCULAR HGB CONC 33.9 g/dL (31-35); MEAN CORPUSCULAR VOLUME 86.6 fL (81-99); MONOCYTES % 10.8 % (4.4-11.3); NEUTROPHILS # (AUTO) 4.5 (2.1-6.9); PLATELET COUNT 518 x10e3/uL (140-360); RED BLOOD COUNT 5.38 x10e6/uL (4.3-5.7); RED CELL DISTRIBUTION WIDTH 13.2 % (11.7-14.4)
[2020-04-19 13:30] LABS: INR 0.9; PROTHROMBIN TIME 12.7 seconds (11.9-14.5)
[2020-04-19 13:31] LABS: PARTIAL THROMBOPLASTIN TIME 28.3 seconds (23.8-35.5)
[2020-04-19 13:37] LABS: ANION GAP 11.8 mmol/L (8-16); BLOOD UREA NITROGEN 11 mg/dL (7-26); BUN/CREATININE RATIO 11 (6-25); CARBON DIOXIDE 25 mmol/L (22-29); CHLORIDE 106 mmol/L (98-107); CREATININE, SERUM 1.02 mg/dL (0.72-1.25); EST GLOMERULAR FILTRATION RATE > 60 ML/MIN (60-); GLUCOSE 93 mg/dL (74-118); POTASSIUM 3.8 mmol/L (3.5-5.1); SODIUM 139 mmol/L (136-145)
[2020-04-22] VITALS (8 sets, daily range): BP systolic 107–122; BP diastolic 67–90
[~2020-04-22] VITALS: Ht 185.4 cm; Wt 91.6 kg
[~2020-04-22 05:35] MED LIST changes: +OMEPRAZOLE40 MG PO; +ROBAXIN-750750 MG PO
[2020-04-22] MEDS ORDERED: CEFAZOLIN SOD 1 GM/NS 50ML 100 ML IV ONE (06:27)
[2020-04-22] MEDS ORDERED: BUPIVACAINE 0.5%/EPI 30 ML SDV INJ ONE (06:38)
[2020-04-22] MEDS ORDERED: THROMBIN FOR SOLN 5,000 UNIT VIAL ONE (06:38)
[2020-04-22] MEDS ORDERED: BACITRACIN 50,000 UNIT VIAL ONE (06:38)
[2020-04-22] MEDS ORDERED: SCOPOLAMINE 1.5 MG PATCH ONE (07:08)
--- NOTE | 2020-04-22 07:10 | NUR ---
SPIRITUAL CARE - Pre-Surgery Assessment: Pt in bed. Pt's at bedside. Pt reported supportive attention from family and friends. Intervention: I provided pastoral presence, hospitality, and sympathetic listening. I acquainted pt with availability of weights and measures inspector while hospitalized. Outcome: Pt expressed appreciation for visit. No need for follow up indicated at this time. CAPRI [facility] Spiritual Care Department O: [phone]
[2020-04-22] MEDS ORDERED: LIDOCAINE HCL (LTA) 4 ML SOLN ONE (07:13)
[2020-04-22] MEDS: PANTOPRAZOLE SOD 40 MG TABEC PO SCH (07:30)
[2020-04-22] MEDS ORDERED: ONDANSETRON HCL INJ 2MG/ML 2ML 2 MG/ML VIAL IV PRN (09:00)
[2020-04-22] MEDS ORDERED: CEPACOL SORE THROAT LOZENGES PO PRN (09:00)
[2020-04-22] MEDS ORDERED: ZOLPIDEM TARTRATE 5 MG TAB PO PRN (09:00)
[2020-04-22] MEDS ORDERED: MORPHINE SULFATE INJ 4 MG/ML INJ 1ML IM PRN (09:00)
[2020-04-22] MEDS ORDERED: PROMETHAZINE HCL (IM) 25 MG/ML VIAL IM PRN (09:00)
[2020-04-22] MEDS: AMLODIPINE BESYLATE 5 MG TAB PO SCH (09:00)
[2020-04-22] MEDS ORDERED: HYDROMORPHONE 2MG/ML 2 MG/ML ML IV PRN (09:00)
[2020-04-22] MEDS ORDERED: OXYCODONE/ACETAMINOPHEN 5-325 1 EACH TABLET PO PRN (09:00)
[2020-04-22] MEDS: LOSARTAN POTASSIUM 25 MG TAB PO SCH (09:00)
[2020-04-22] MEDS ORDERED: ACETAMINOPHEN 325 MG TAB PO PRN (09:00)
[2020-04-22] MEDS ORDERED: MAGNESIUM/ALUMINUM/SIMETHICONE 30 ML UDC PO PRN (09:00)
[2020-04-22] MEDS: HYDROMORPHONE 1MG/1ML INJ ONE ×2 (09:19→12:03)
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
--- NOTE | 2020-04-22 11:53 | Operative Report ---
DATE OF PROCEDURE: 04/22/2020 SURGEON: Jaren Menard MD PREOPERATIVE DIAGNOSES: Left L2-L3 disk herniation with inferior migration and sequestration of extruded disk fragment. POSTOPERATIVE DIAGNOSES: Left L2-L3 disk herniation with inferior migration and sequestration of extruded disk fragment. PROCEDURES: Left L3-L2 laminotomy, medial facetectomy, and microsurgical diskectomy, 34014. ANESTHESIA: General. INDICATIONS: The patient is a 54-year-old man, who presented with a large left L2-L3 disk herniation with inferior migration of the extruded disk fragment into the left L3 lateral recess and was taken to surgery for microsurgical decompression. PROCEDURE IN DETAIL: After induction of anesthesia, the patient was placed on the operating table in prone position on the Romie frame. Lumbar region was prepped and draped in sterile fashion. A preoperative x-ray was obtained. A small midline incision was created. Lumbar fascia was opened in left of midline and a subperiosteal dissection was carried out to expose the left side of L2 and L3 lamina, and the medial aspect of the facet joint. A second x-ray confirmed correct localization. The operating microscope was brought in. A high-speed drill equipped with a domonique bur, was used to drill the inferior aspect of the lamina of L2 and the superior aspect of lamina of L3 and the medial aspect of the L2-L3 facet joint. The ligamentum flavum was resected and dural sac, and the L3 traversing nerve roots were exposed. The underlying disk herniation immediately came into view anterolateral to the nerve root, markedly compressing and displacing the nerve root. The extruded disk material was mobilized with a micro ball probe and grasped with a micro pituitary rongeur and removed several large fragments of disk. The ball probe was then inserted into the ventral epidural space and directed inferiorly, superiorly, and medially. An additional fragments of extruded and sequestered disk were meticulously removed until the dural sac and L3 nerve roots were fully exposed and decompressed. The opening into the annulus of the L2-L3 disk was then enlarged with a #11 blade and loose contents of the L2-L3 disk were conservatively evacuated with curettes and pituitary rongeurs. Excellent decompression was achieved. Meticulous hemostasis was secured. Retractor was removed. The lumbar fascia was closed with 0 Vicryl suture. Subcutaneous layer was closed with 2-0 Vicryl sutures. Skin was closed with 3-0 Monocryl sutures in subcuticular fashion. Steri-Strips and dressing were applied. The patient was awakened, extubated, and taken to postanesthesia care unit in stable condition. No intraoperative complications were encountered. Estimated blood loss was 10 mL. Jaren Menard MD PP/YANELIS /[id number]
[2020-04-22] MEDS: LACTATED RINGER'S 1,000 ML IV SCH ×2 (12:00→16:17)
[2020-04-22] MEDS: CARISOPRODOL 350 MG TAB PO PRN ×2 (13:55→21:48)
--- NOTE | 2020-04-22 14:44 | Diagnostic Imaging Report ---
EXAM: SPINE 1 VW LUMBAR, SPINE 1 VW LUMBAR DATE: 04/22/2020 7:01 AM INDICATION: Intraoperative examination, L2-3 disc herniation FINDINGS/IMPRESSION: 2 crosstable intraoperative radiographs are obtained of the lumbar spine. An intraoperative verbal report was not requested. Please see operative report for further details. Localization instrumentation projects towards the posterior aspect of the L2-L3 intervertebral level. Signed by: Dr. Anton Dan MD on 04/22/2020 2:41 PM
[2020-04-22] MEDS ORDERED: MIDAZOLAM HCL 2 MG/2 ML VIAL ONE (15:09)
[2020-04-22] MEDS ORDERED: FENTANYL CITRATE/PF 100MCG/2 ML INJ ONE (15:09)
[2020-04-22] MEDS: CEFAZOLIN SOD 1 GM/NS 50ML 50 ML IV SCH ×2 (16:18→23:35)
--- NOTE | 2020-04-22 19:15 | NUR ---
RECEIVED REPORT FROM PREVIOUS NURSE. CALL LIGHT WITHIN REACH. PATIENT IN BED. ROUNDING DONE ON PATIENT WITH PREVIOUS NURSE. AT BEDSIDE
[2020-04-22] MEDS ORDERED: ROCURONIUM BROMIDE 10 MG/ML 5ML VIAL IV ONE (20:11)
[2020-04-22] MEDS ORDERED: GLYCOPYRROLATE INJ 0.2 MG/ML VIAL ONE (20:11)
[2020-04-22] MEDS ORDERED: NEOSTIGMINE 1 MG/ML 10ML VIAL ONE (20:11)
[2020-04-22] MEDS ORDERED: ACETAMINOPHEN 1000 MG/100 ML IV ONE (20:11)
[2020-04-22] MEDS ORDERED: ONDANSETRON HCL INJ 2MG/ML 2ML 2 MG/ML VIAL ONE (20:11)
[2020-04-22] MEDS ORDERED: PROPOFOL IV EMULSION 10 MG/ML 20 ML VIAL ONE (20:11)
[2020-04-22] MEDS ORDERED: SEVOFLURANE INHAL SOLN 250 ML PEN BTL ONE (20:11)
[2020-04-22] MEDS ORDERED: DEXAMETHASONE SOD PHOS INJ 4 MG/ML VIAL ONE (20:11)
[2020-04-22] MEDS ORDERED: LIDOCAINE HCL 2% LOCAL INJ 5 ML SDV VIAL INJ ONE (20:11)
[2020-04-23 00:47] VITALS: BP 142/90
[2020-04-23 04:43] VITALS: BP 105/69
--- NOTE | 2020-04-23 07:00 | NUR ---
beside shift report received pt in stable condition deneis pain at this time, updated on poc vocied understanding, dsg to lower lumbar c/d/i, no other co voiced call light in reach will continue to montior
--- NOTE | 2020-04-23 07:15 | NUR ---
GAVE BEDSIDE SHIFT REPORT TO ONCOMING NURSE. CALL LIGHT WITHIN REACH. PATIENT IN BED.
[2020-04-23] MEDS: CEFAZOLIN SOD 1 GM/NS 50ML 50 ML IV SCH (07:30)
[2020-04-23 07:55] VITALS: BP 109/67
[2020-04-23 08:01] VITALS: BP 122/67
[2020-04-23 08:24] VITALS: BP 122/67
[2020-04-23] MEDS: PANTOPRAZOLE SOD 40 MG TABEC PO SCH (08:41)
[2020-04-23] MEDS: LOSARTAN POTASSIUM 25 MG TAB PO SCH (08:42)
[2020-04-23] MEDS: AMLODIPINE BESYLATE 5 MG TAB PO SCH (08:42)
[2020-04-23] MEDS ORDERED: NORCO 7.5-3251 EACH PO (10:04)
== END 2020-04-23 10:37 | disposition home or self-care (01) ==
LOC: OR 05:35 → PACU V 08:56 → MED/SURG 11:11
PROVIDERS: ADMIT Neurological Surgery; ATTEND Neurological Surgery
DX: M51.06 Intervertebral disc disorders with myelopathy, lumbar region (principal); I10 Essential (primary) hypertension; K21.9 Gastro-esophageal reflux disease without esophagitis; H91.90 Unspecified hearing loss, unspecified ear
CPT/HCPCS: 36415; 63047; 72020; 80048; 85025; 85610; 85730; 86850; 86900; 87635; 88304; G0378 ×2; J0131; J0690 ×2; J1100; J1170 ×2; J2001; J2250; J2405; J2704; J2710; J3010; J7121; S0164

== ENCOUNTER 2020-05-17 09:00 | Outpatient (RCR) | payer BC | END 2020-05-18 | LOC: PT 09:00 | PROVIDERS: ATTEND Neurological Surgery | DX: M51.16 Intervertebral disc disorders with radiculopathy, lumbar region (principal); M62.81 Muscle weakness (generalized); M54.5 Low back pain ==

== ENCOUNTER 2020-05-27 07:00 | Outpatient (RCR) | payer BC | END 2020-06-18 | LOC: PT 07:00 | PROVIDERS: ATTEND Neurological Surgery | DX: M51.16 Intervertebral disc disorders with radiculopathy, lumbar region (principal); M62.81 Muscle weakness (generalized); M54.5 Low back pain | CPT/HCPCS: 97139 ==

== ENCOUNTER → 2025-03-16 | Day surgery (SDC) | payer BC ==
[~2025-03-16] MED LIST changes: +CEFAZOLIN SODIUM 2 GM ONE; +DEXAMETHASONE SOD PHOS INJ 4 MG/ML SDV ONE; +EPHEDRINE SULFATE INJ 50 MG/ML VIAL ONE; +FENTANYL CITRATE/PF 100MCG/2 ML INJ ONE; +KETOROLAC TROMETHAMINE 30 MG/ML VIAL ONE; +MIDAZOLAM HCL 2 MG/2 ML VIAL ONE; +ONDANSETRON HCL INJ 2MG/ML 2ML 2 MG/ML VIAL ONE; +PROPOFOL IV EMULSION 10 MG/ML 20 ML VIAL ONE; +SCOPOLAMINE 1 MG PATCH ONE; +SEVOFLURANE INHAL SOLN 250 ML PEN BTL ONE
[2025-03-16] MEDS: CEFAZOLIN SODIUM 2 GM ONE (06:15)
[2025-03-16] MEDS: LACTATED RINGER'S 1,000 ML ONE (06:16)
[2025-03-16 08:04] VITALS: TEMP 98.5
[2025-03-16 08:50] VITALS: BP 135/85; PULSE 60; RESP 16; O2SAT 98
== END | disposition home or self-care (01) ==
LOC: OR 05:06
PROVIDERS: ATTEND Podiatrist Foot & Ankle Surgery
DX: G57.52 Tarsal tunnel syndrome, left lower limb (principal); G57.32 Lesion of lateral popliteal nerve, left lower limb; I83.92 Asymptomatic varicose veins of left lower extremity; S84.12XA Injury of peroneal nerve at lower leg level, left leg, initial encounter; I10 Essential (primary) hypertension; E78.5 Hyperlipidemia, unspecified; K21.9 Gastro-esophageal reflux disease without esophagitis; X58.XXXA Exposure to other specified factors, initial encounter; Z88.6 Allergy status to analgesic agent; Z01.810 Encounter for preprocedural cardiovascular examination; Z79.899 Other long term (current) drug therapy
CPT/HCPCS: 28035; 64708; 93005; J1100; J1885; J2250; J2405; J2704; J3010; J7121